=== PATIENT | female | born 1955 | race American Indian/Alaskan Native ===

== ENCOUNTER 2018-10-14 11:13 | Outpatient (CLI) | payer MEDICARE | END 2018-10-14 11:14 | disposition home or self-care (01) | LOC: LAB 11:13 | PROVIDERS: ATTEND Specialist | DX: G43.719 Chronic migraine without aura, intractable, without status migrainosus (principal) | CPT/HCPCS: 36415; 85652 ==

== ENCOUNTER 2018-10-26 09:30 | Outpatient (CLI) | payer MEDICARE | END 2018-10-26 09:31 | disposition home or self-care (01) | LOC: LAB 09:30 | PROVIDERS: ATTEND Specialist | DX: G43.719 Chronic migraine without aura, intractable, without status migrainosus (principal) | CPT/HCPCS: 36415; 85652 ==

== ENCOUNTER 2018-11-10 12:58 | Outpatient (CLI) | payer MEDICARE | END 2018-11-10 12:59 | disposition home or self-care (01) | LOC: LAB 12:58 → XRAY 12:58 → LAB 12:59 | PROVIDERS: ATTEND Specialist | DX: M31.6 Other giant cell arteritis (principal) | CPT/HCPCS: 36415; 85652 ==

== ENCOUNTER 2019-03-24 10:42 | Outpatient (CLI) | payer MEDICARE | END 2019-03-24 10:43 | disposition home or self-care (01) | LOC: LAB 10:42 | PROVIDERS: ATTEND Specialist | DX: G43.719 Chronic migraine without aura, intractable, without status migrainosus (principal) | CPT/HCPCS: 36415; 85652 ==

== ENCOUNTER 2019-03-31 12:11 | Outpatient (CLI) | payer MEDICARE | END 2019-03-31 12:12 | disposition home or self-care (01) | LOC: LAB 12:11 | PROVIDERS: ATTEND Specialist | DX: G43.719 Chronic migraine without aura, intractable, without status migrainosus (principal) | CPT/HCPCS: 36415; 85652 ==